=== PATIENT | male | born 1950 | race Caucasian/White ===

== ENCOUNTER → 2016-10-19 | Outpatient (CLI) | payer BC ==
[~2016-10-19] MED LIST: ADVIL200 MG PO; ASPIRIN EC81 MG PO; BACITRACIN15 GM TOP; CEFAZOLIN2 GM/50 M1 IV; COLACE100 MG PO; COUMADIN ** 9/62 MG PO; FEOSOL325 MG PO; LIPITOR10 MG PO; MILK OF MA400 MG/5 M PO; MIRALAX17 GM PO; MORPHINE S100 MG/5 M PO; MS CONTIN30 MG PO; NORCO 5-325 MG1 TAB PO; THERA-VITE W/ B1 TAB PO; TYLENOL325 MG PO
[2016-10-19 09:17] LABS: TOTAL BILIRUBIN 1.2 mg/dL (0.0-1.5); TOTAL PROTEIN 7.4 g/dL (6.0-8.4)
== END | disposition disaster alternative care site (69) ==
LOC: LNHI 09:00
PROVIDERS: Internal Medicine Interventional Cardiology
DX: I34.0 Nonrheumatic mitral (valve) insufficiency (principal); I95.9 Hypotension, unspecified